=== PATIENT | male | born 1950 | race African-American/Black ===

== ENCOUNTER 2021-06-14 13:07 | Inpatient (IN) | payer OTHER ==
[~2021-06-14] VITALS: Ht 165.1 cm; Wt 130.0 kg
[~2021-06-14 13:07] MED LIST: LIPITOR20 MG; PRILOSEC20 MG PO
--- NOTE | 2021-06-14 13:12 | NUR ---
SE RECIBE PTE ALERTA, COMBATIVO Y DESORIENTADO X 3 ESFERAS EN AMBULANCIA EN COMPANIA DE FAMILIAR Y PARAMEDICOS.FAMILIAR INDICA QUE FUE LA CASA DEL PTE Y LO ENCONTRO DESORIENTADO. REFIERE QUE EL PTE PRESENTO RELAJACION DE ESFINTERES. INDICA QUE LO SUCEDIDO FUE JARAD LA MANANA DE HOY
--- NOTE | 2021-06-14 13:52 | NUR ---
PTE EVALUADO POR EL DR SANCHES QUIEN [place]. MR Farzana SOLIZERO ORIENTA SOBRE EL TX ORDENADO, AL MOMENTO PTE SOLO Y DESORIENTADO. MR Farzana ROMERO REALIZA PRUEBAS DE LABORATORIO ELEAZAR ORDEN MEDICA Y SIGUIENDO MEDIDAS ASEPTICAS. CT NOTIFICADO A PERSONAL DE TURNO.
--- NOTE | 2021-06-14 14:11 | NUR ---
PTE SE ENCUENTRA COMBATIVO Y AGRESIVO. SE NOTIFICA A A EL CUAL INDICA QUE SE COLOQUE RESTRICCION A PTE Y SE ADMINISTRE ATIVAN 2MG IV STAT. SE ADMINISTRA MEDICAMENTO ELEAZAR ORDEN MEDICA. SE RESTRINGE A PTE EN EXTREMIDADES INFERIORES Y SUPERIORES Y SE BLAKE A PTE EN COMPANIA DE FAMILIAR. SE MANTIENE EN OBSERVACION POR CAMBIOS.
--- NOTE | 2021-06-14 16:56 | NUR ---
PTE TRANQUILO EN COMPANIA DE FAMILIAR. SE MANTIENE EN OBSERVACION.
--- NOTE | 2021-06-14 17:39 | NUR ---
SE INSERTA CLAROS BAJO MEDIDAS ASEPTICAS,SE RJ MUESTRA DE UA,SE LE REALIZA CAMBIO DE ROPA DE CAMA.SE BLAKE BAJO OBSERVACION,RESTRINGIDO X 4.
--- NOTE | 2021-06-14 19:30 | NUR ---
PTE TRANQUILO EN CAMA CON BARANDAS ELEVADAS POR SEGURIDAD EN COMPANIA DE FAMILIAR. SE MANTIENE EN OBSERVACION POR CAMBIOS.
--- NOTE | 2021-06-14 21:42 | NUR ---
PTE EN CAMA CON BARANDAS ELEVADAS EN COMPANIA DE FAMILIAR. SE MANTIENE EN OBSERVACION. PENDIENTE MRI DE PHILLIP EN LA MANANA.
--- NOTE | 2021-06-15 01:02 | NUR ---
PTE ALERTA Y SIGUIENDO COMANDOS,EN TRICIA CON BARANDAS ELEVADAS,SIN FAMILIAR AL MOMENTO DE LA AMIE,AREA DE VENOPUNCION PATENTE Y NATI DE EDEMA CON FLUIDOS DE MANTENIMIENTO,BAJO OBSERVACION.
--- NOTE | 2021-06-15 07:13 | NUR ---
SE RECIBE PACIENTE EN TRICIA ALERTA, CON BARANDAS ELEVADAS POR PRECAUCION, PACIENTE RESTRINGIDO EN LAS 4 EXTREMIDADES, AREAS DE RESTRICCIONES NATI DE ENROJECIMIENTOS, EDEMAS Y PULSOS PALPABLES. RECIBIENDO IVLFDS 0.9NSS A 150ML/HR AREA DE VENOPUNCION PATENTE, NATI DE EDEMAS Y ENROJECIMIENTOS. PENDIENTE CONSULTA CON DR. MONTALVO. SE MANTIENE CERCA DE COUNTER DE ENFERMERIA SE MANTIENE EN OBSERVACION.
--- NOTE | 2021-06-15 13:12 | NUR ---
PACIENTE REVALUADA POR DR. JACQUES QUIEN ORDENA [place] MEDICO. SE ORIENTA A PACIENTE SOBRE EL MISMO REFIERE ENTENDER Y SE EJEUCTAN ORDENES MEDICAS.
== END 2021-06-18 12:45 | disposition home or self-care (01) | DRG 641 ==
LOC: ER 13:07 → MEDJ 06-15 10:56
PROVIDERS: ADMIT Internal Medicine; ATTEND Internal Medicine
PROC: BW38ZZZ Magnetic Resonance Imaging (MRI) of Head (ICD-10-PCS; principal; 2021-06-17)
DX: E86.0 Dehydration (principal); E87.8 Other disorders of electrolyte and fluid balance, not elsewhere classified; R41.0 Disorientation, unspecified; F14.10 Cocaine abuse, uncomplicated; F12.10 Cannabis abuse, uncomplicated; E78.49 Other hyperlipidemia; Z20.822 Contact with and (suspected) exposure to COVID-19
CPT/HCPCS: 70544